=== PATIENT | male | born 1960 | race Caucasian/White ===

== ENCOUNTER 2016-04-23 09:16 | Emergency (ER) | payer MEDICARE ==
[~2016-04-23] VITALS: Ht 175.3 cm; Wt 70.0 kg
[2016-04-23] MEDS ORDERED: SERT25TA74 PO (09:27)
[2016-04-23] MEDS ORDERED: DIPH25CA83 PO (09:27)
[2016-04-23] MEDS ORDERED: HYDR-523 PO (09:27)
[2016-04-23] MEDS ORDERED: KETOROLAC 60MG/2ML VIAL IM ONE (11:15)
[2016-04-23] MEDS ORDERED: OLANZAPINE 10MG TABLET ODT PO ONE (11:15)
[2016-04-23 11:37] LABS: BASOPHILS % 0.9 % (0.0-2.0); HEMATOCRIT. 39.6 % (42.0-52.0); LYMPHOCYTES % 20.2 % (20.0-50.0); MEAN CORPUSCULAR HEMOGLOBIN 26.3 pg (28.0-32.0); MEAN CORPUSCULAR HGB CONC 32.9 g/dL (31.0-37.0); MONOCYTES % 8.1 % (2.0-8.0); NEUTROPHILS % 69.8 % (40.0-76.0); PLATELET 257 x1000/uL (130-400); RED BLOOD CELL COUNT 4.94 mill/uL (4.7-6.1); RED CELL DISTRIBUTION WIDTH 15.8 % (11.6-14.6); WHITE BLOOD COUNT 10.8 x1000/uL (4.5-11.0)
[2016-04-23 11:39] LABS: CLARITY URINE CLEAR (CLEAR); COLOR URINE YELLOW (YELLOW); GLUCOSE URINE NEGATIVE (NEGATIVE); KETONES URINE NEGATIVE (NEGATIVE); LEUKOCYTE ESTERASE URINE NEGATIVE (NEGATIVE); NITRITE URINE NEGATIVE (NEGATIVE); OCCULT BLOOD URINE NEGATIVE (NEGATIVE); PH URINE 5.5 (4.5-8.0); PROTEIN URINE NEGATIVE (NEGATIVE); SPECIFIC GRAVITY URINE 1.027 (1.005-1.030); UROBILINOGEN URINE 0.2 E.U./dL (0.2-1.0)
[2016-04-23 11:51] LABS: ACETAMINOPHEN 7 ug/mL (10-30); ALANINE AMINOTRANSFERASE 16 IU/L (13-61); ALBUMIN 3.4 g/dL (3.4-5.0); ANION GAP 9; CALCIUM 8.1 mg/dL (8.5-10.1); CARBON DIOXIDE 29 mEq/L (21-32); CHLORIDE 107 mEq/L (98-107); ETHANOL BLOOD < 10 mg/dL; INDEX HEMOLYSI 1 (1-3); INDEX ICTERIC 1 (1-4); INDEX LIPEMIC 1 (1-3); UREA NITROGEN BLOOD 14 mg/dL (7-21); eGFR > 60 mL/min (>60)
[2016-04-23 11:53] LABS: *AMPHETAMINES SCREEN URINE NEGATIVE (NEGATIVE); *BARBITURATES SCREEN URINE NEGATIVE (NEGATIVE); *BENZODIAZEPINES SCREEN URINE NEGATIVE (NEGATIVE); *COCAINE SCREEN URINE PRESUMTIVE POSITIVE (NEGATIVE); CANNABINOID URINE SCREEN NEGATIVE (NEGATIVE); ECSTASY MDMA SCREEN URINE NEGATIVE (NEGATIVE); METHADONE URINE SCREEN NEGATIVE (NEGATIVE); OPIATES URINE SCREEN PRESUMTIVE POSITIVE (NEGATIVE); PHENCYCLIDINE URINE SCREEN NEGATIVE (NEGATIVE)
[2016-04-24] MEDS ORDERED: HYDROCODONE/ACETAMINOPHEN 10/325MG TABLET PO ONE (07:15)
[2016-04-24] MEDS ORDERED: CEPHALEXIN 500MG CAPSULE PO ONE (07:15)
[2016-04-24 13:15] VITALS: BP 133/78
== END 2016-04-24 13:18 | disposition home or self-care (01) ==
LOC: ER 09:32
DX: R45.851 Suicidal ideations (principal); R44.0 Auditory hallucinations; M79.641 Pain in right hand; M79.644 Pain in right finger(s); F41.8 Other specified anxiety disorders; I10 Essential (primary) hypertension; Z98.890 Other specified postprocedural states; F14.10 Cocaine abuse, uncomplicated; D72.829 Elevated white blood cell count, unspecified; F19.10 Other psychoactive substance abuse, uncomplicated
CPT/HCPCS: 36415; 80053; 80305; 80329; 81003; 85025; 96372; 99285; G0482; J1885; 80307

== ENCOUNTER 2016-05-06 01:26 | Emergency (ER) | payer MEDICARE ==
[~2016-05-06] VITALS: Ht 190.5 cm; Wt 93.0 kg
[~2016-05-06 01:26] MED LIST: DIPH25CA83 PO; HYDR-523 PO; SERT25TA74 PO
[2016-05-06] MEDS ORDERED: ACETAMINOPHEN WITH CODEINE 300/30MG TABLET PO ONE (02:00)
[2016-05-06 02:47] VITALS: BP 134/95
[2016-05-06] MEDS ORDERED: ACETAMINOPHEN 325MG TABLET PO ONE (03:15)
== END 2016-05-06 03:48 | disposition home or self-care (01) ==
LOC: ER 01:34
DX: S62.396A Other fracture of fifth metacarpal bone, right hand, initial encounter for closed fracture (principal); F20.9 Schizophrenia, unspecified; F43.10 Post-traumatic stress disorder, unspecified; Z98.890 Other specified postprocedural states; W19.XXXA Unspecified fall, initial encounter; Y93.89 Activity, other specified; Y99.8 Other external cause status; Y92.89 Other specified places as the place of occurrence of the external cause
CPT/HCPCS: 29125; 73130; 99284

== ENCOUNTER 2023-05-17 22:32 | Emergency (ER) | payer MEDICAID, OTHER ==
[~2023-05-17] VITALS: Ht 188 cm; Wt 82.0 kg
[2023-05-17 22:46] VITALS: O2SAT 98
[2023-05-18] MEDS: IBUPROFEN 600MG TABLET PO ONE (00:31)
[2023-05-18 00:40] VITALS: BP 163/95; PULSE 83; RESP 16; TEMP 97.7
== END 2023-05-18 00:45 | disposition home or self-care (01) ==
LOC: ER 22:32
DX: F10.129 Alcohol abuse with intoxication, unspecified (principal); F31.9 Bipolar disorder, unspecified; F20.9 Schizophrenia, unspecified; F14.10 Cocaine abuse, uncomplicated; F15.10 Other stimulant abuse, uncomplicated; Y90.0 Blood alcohol level of less than 20 mg/100 ml
CPT/HCPCS: 99283